=== PATIENT | female | born 1990 ===

== ENCOUNTER 2023-11-17 05:12 | Day surgery (SDC) | payer OTHER ==
[2023-11-12 13:11] VITALS: BP 130/82
[2023-11-12 14:17] LABS: INR 1.09; PARTIAL THROMBOPLASTIN TIME 31.9 SECONDS (22.0-34.0); PROTHROMBIN TIME 11.8 SECONDS (9.0-11.5)
[~2023-11-17] VITALS: Ht 160 cm; Wt 101.2 kg
[~2023-11-17 05:12] MED LIST: LABETALOL HCL100 MG PO; PANADOL EXTRA500 MG PO
[2023-11-17] MEDS ORDERED: CEFAZOLIN SODIUM 1,000 MG VIAL IV SCH (12:30)
[2023-11-17] MEDS ORDERED: KETOROLAC TROMETHAMINE 60 MG VIAL IM ONE (13:00)
[2023-11-17] MEDS ORDERED: SUGAMMADEX SODIUM 200 MG/2 ML VIAL IV ONE (13:00)
[2023-11-17] MEDS ORDERED: ONDANSETRON HCL 2 MG/ML VIAL IV ONE (13:00)
[2023-11-17] MEDS ORDERED: MORPHINE SULFATE 4 MG/ML VIAL IV ONE ×2 (13:25→13:55)
== END 2023-11-17 16:15 | disposition home or self-care (01) ==
LOC: CIR.AMB 05:12
PROVIDERS: ATTEND Obstetrics & Gynecology
DX: N70.11 Chronic salpingitis (principal); R10.2 Pelvic and perineal pain; J45.909 Unspecified asthma, uncomplicated; K21.9 Gastro-esophageal reflux disease without esophagitis